=== PATIENT | male | born 1985 | race Caucasian/White ===

== ENCOUNTER 2017-01-22 02:43 | Inpatient (IN) | payer OTHER ==
--- NOTE | 2017-01-22 03:05 | HP ---
COWS - Scale Resting Pulse: 1= [place] 81-100 Sweatin= Chills/Flushing Restless Observation: 3= Extraneous Movement Pupil Size: 1= Pupils >than Normal Bone or Joint Aches: 1= Mild Discomfort Runny Nose/ Eye Tearin= Runny Nose/Eyes GI Upset > 30mins: 1= Stomach Cramp Tremor Observation: 1= Tremor [place], Not Seen Yawning Observation: 1= 1-2x During Session Anxiety or Irritability: 1=Feels Anxious/Irritable Goose Flesh Skin: 0=Smooth Skin COWS Score: 13 Admission ROS S - HPI Chief Complaint: WITHDRAWAL SYMPTOMS Allergies/Adverse Reactions: Allergies Allergy/AdvReac Type Severity Reaction Status Date / Time No Known Allergies Allergy Verified 01/22/17 03:10 History of Present Illness: 32 Y.O. MAN WITH A 3 YEAR HISTORY OF HEROIN DEPENDENCE IS HERE SEEKING DETOX. HE REPORTS HIS LAST ADMISSION TO DETOX WAS LAST November,. HE REPORTS HIS LONGEST PERIOD OF HEROIN ABSTINENCE HAS BEEN 1 YEAR. Exam Limitations: No Limitations - Ebola screening Have you traveled outside of the country in the last 21 days: No - Review of Systems Constitutional: Loss of Appetite, Changes in sleep EENT: reports: Tearing, Nose Congestion Respiratory: reports: No Symptoms reported Cardiac: reports: No Symptoms Reported GI: reports: Constipated : reports: No Symptoms Reported Musculoskeletal: reports: No Symptoms Reported Integumentary: reports: No Symptoms Reported Neuro: reports: No Symptoms reported Endocrine: reports: No Symptoms Reported Hematology: reports: No Symptoms Reported Psychiatric: reports: No Sypmtoms Reported Other Systems: Reviewed and Negative Patient History - Patient Medical History Hx Anemia: No Hx Asthma: No Hx Chronic Obstructive Pulmonary Disease (COPD): No Hx Cancer: No Hx Cardiac Disorders: No Hx Congestive Heart Failure: No Hx Hypertension: No Hx Hypercholesterolemia: No Hx Pacemaker: No HX Cerebrovascular Accident: No Hx Seizures: No Hx Dementia: No Hx Diabetes: No Hx Gastrointestinal Disorders: No Hx Liver Disease: No Hx Genitourinary Disorders: No Hx Sexually Transmitted Disorders: No Hx Renal Disease (ESRD): No Hx Thyroid Disease: No Hx Human Immunodeficiency Virus (HIV): No Hx Hepatitis C: No Hx Depression: No Hx Suicide Attempt: No Hx Bipolar Disorder: No Hx Schizophrenia: No - Patient Surgical History Past Surgical History: Yes Other Surgical History: 2012: LEFT HIP RESURFACING - PPD History Previous Implant?: Yes Documented Results: Negative w/o proof PPD to be Administered?: Yes - Reproductive History Patient is a Female of Child Bearing Age (11 -55 yrs old): No - Smoking Cessation Smoking history: Current every day smoker Have you smoked in the past 12 months: Yes Initiated information on smoking cessation: Yes 'Breaking Loose' booklet given: 01/22/17 - Substance & Tx. History Hx Alcohol Use: No Hx Substance Use: Yes Substance Use Type: Heroin Hx Substance Use Treatment: Yes (DETOX: 2016) - Substances Abused Heroin Route: Inhalation Frequency: Daily Amount used: 3 BUNDLES Age of first use: 28 Date of Last Use: 01/21/17 Family Disease History - Family Disease History Family History: Denies Admission Physical Exam [facility] - Vital Signs Vital Signs: Last Vital Signs Temp Pulse Resp BP Pulse Ox 98.5 F 93 H 16 160/90 01/22/17 03:41 01/22/17 03:41 01/22/17 03:41 01/22/17 03:41 - Physical General Appearance: Yes: No Apparent Distress, Nourished, Appropriately Dressed HEENTM: Yes: Hearing grossly Normal, Normocephalic, Normal Voice Respiratory: Yes: Chest Non-Tender, Lungs Clear, Normal Breath Sounds, No Respiratory Distress, No Accessory Muscle Use Neck: Yes: No masses,lesions,Nodules, Trachea in good position Breast: Yes: Breast Exam Deferred Cardiology: Yes: Regular Rhythm, Regular Rate Abdominal: Yes: Non Tender, Flat, Soft Genitourinary: Yes: Other (NO COMPLAINTS REPORTED) Back: Yes: Normal Inspection Musculoskeletal: Yes: full range of Motion, Gait Steady, Pelvis Stable Extremities: Yes: Normal Capillary Refill, Normal Inspection, Normal Range of Motion, Non-Tender Neurological: Yes: Fully Oriented, Alert, Motor Strength 5/5, Normal Mood/Affect , Normal Response Integumentary: Yes: Normal Color, Dry, Warm Lymphatic: Yes: Within Normal Limits - Diagnostic (1) Opioid dependence with withdrawal Current Visit: Yes Status: Chronic (2) Nicotine dependence Current Visit: Yes Status: Chronic Cleared for Admission [facility] - Detox or Rehab [facility] Level of Care: Medically Managed Detox Regimen/Protocol: Methadone Vital Signs - Vital Signs Vital Signs Refused: No Temperature: 98.5 F Temperature Source: Oral Pulse Rate: 93 Respiratory Rate: 16 Blood Pressure: 160/90 BP Location: Right Arm Blood Pressure Position: Sitting - Height Height: 6 ft 4 in - Weight Weight: 280 lb Weight Measurement Method: Standing Scale Body Mass Index (BMI): 34.0 - Bowel Function Bowel Movement: No Urine Drug Screen - Control Is Test Valid: Yes - Results Drug Screen Negative: No Urine Drug Screen Results: OPI-Opiates
[2017-01-22] MEDS ORDERED: MENTHOL/PHENOL 1 EACH UD MM PRN (03:19)
[2017-01-22] MEDS ORDERED: METHADONE HCL 10 MG TABLET (FOR DETOX USE ONLY) PO ONE ×3 (03:19→23:00)
[2017-01-22] MEDS ORDERED: MAGNESIUM HYDROX 2400MG/30ML ORAL SUSPENSION 30 ML CUP PO PRN (03:19)
[2017-01-22] MEDS ORDERED: hydrOXYzine PAMOATE 50 MG CAPSULE (FP) PO PRN (03:19)
[2017-01-22] MEDS ORDERED: MAG HYDROX/AL HYDROX/SIMETH 30 ML UNIT-DOSE CUP PO PRN (03:19)
[2017-01-22] MEDS ORDERED: MAGNESIUM CITRATE 300 ML BOTTLE PO PRN (03:19)
[2017-01-22] MEDS ORDERED: ACETAMINOPHEN 325 MG TABLET (FP) PO PRN (03:19)
[2017-01-22] MEDS ORDERED: IBUPROFEN 400 MG TABLET (FP) PO PRN (03:19)
[2017-01-22] MEDS ORDERED: guaiFENesin/D-METHORPHAN HB 10 ML UNIT-DOSE CUPS PO PRN (03:19)
[2017-01-22] MEDS ORDERED: P-EPHED 60MG/TRIPROLIDI 2.5MG TABLET PO PRN (03:19)
[2017-01-22] MEDS ORDERED: LOPERAMIDE HCL 2 MG CAPSULE PO PRN (03:19)
[2017-01-22 03:41] VITALS: BMI 34.0
[2017-01-22] MEDS ORDERED: diphenhydrAMINE HCL 25 MG CAPSULE (FP) PO ONE (03:51)
[2017-01-22] MEDS: diphenhydrAMINE HCL 50 MG CAPSULE PO PRN ×2 (03:55→22:22)
[2017-01-22] MEDS: diazePAM 5 MG TABLET PO PRN ×4 (03:58→22:21)
--- NOTE | 2017-01-22 09:59 | EKG ---
Test Reason : Blood Pressure : / mmHG Vent. Rate : 068 BPM Atrial Rate : 068 BPM P-R Int : 170 ms QRS Dur : 102 ms QT Int : 390 ms P-R-T Axes : 058 049 025 degrees QTc Int : 414 ms NORMAL SINUS RHYTHM NON-SPECIFIC INTRA-VENTRICULAR CONDUCTION DELAY NO PREVIOUS ECGS AVAILABLE Confirmed by TEO AWAN MD ([id number]) on 01/22/2017 9:58:27 AM Referred By: Confirmed By:TEO AWAN MD
[2017-01-22] MEDS: PRENATAL VITAMINS W/ FOLIC ACID TABLET (FP) PO SCH (10:33)
--- NOTE | 2017-01-22 15:58 | PN ---
S Progress Note Note: Patient seen resting in bed in [facility]. He reports feeling sweaty and aching of the joints. Last Vital Signs Temp Pulse Resp BP Pulse Ox 96.4 F L 81 20 136/57 01/22/17 09:54 01/22/17 09:54 01/22/17 09:54 01/22/17 09:54 VSS; continue detox, encouraged to drink lots of water. Follow up on admission labs (ordered for tomorrow).
[2017-01-22] MEDS: THIAMINE HCL 100 MG TABLET (FP) PO SCH (22:21)
[2017-01-23] MEDS: diazePAM 5 MG TABLET PO PRN ×4 (05:41→22:25)
[2017-01-23] MEDS ORDERED: METHADONE HCL 10 MG TABLET (FOR DETOX USE ONLY) PO ONE (10:00)
[2017-01-23 10:09] LABS: MCH 29.3 pg (25.7-33.7); MCHC 33.3 g/dl (32.0-35.9); MEAN CELL VOLUME 88.1 fl (80-96); MEAN PLT VOLUME 10.8 fl (7.5-11.1); PLATELET COUNT 131 K/MM3 (134-434); RDW 12.9 % (11.9-15.9); WHITE BLOOD COUNT 7.5 K/mm3 (4.0-10.0)
[2017-01-23 10:22] LABS: ALBUMIN 3.6 g/dl (3.4-5.0); ANION GAP 4 (8-16); CALCIUM 8.9 mg/dL (8.5-10.1); CO2 30 mmol/L (21-32); CREATININE 0.9 mg/dL (0.7-1.3); GLUCOSE,RANDOM 83 mg/dL (74-106); SGOT/AST 10 U/L (15-37); SGPT/ALT 21 U/L (12-78)
[2017-01-23] MEDS: PRENATAL VITAMINS W/ FOLIC ACID TABLET (FP) PO SCH (10:22)
[2017-01-23 10:24] LABS: ALK PHOS 62 U/L (45-117); BILIRUBIN,TOTAL 0.7 mg/dL (0.2-1.0); TOT PROT 6.6 g/dl (6.4-8.2)
--- NOTE | 2017-01-23 11:18 | PN ---
S COWS - Scale Resting Pulse: 1= [place] 81-100 Sweatin= Chills/Flushing Restless Observation: 1= Difficult to Sit Still Pupil Size: 1= Pupils >than Normal Bone or Joint Aches: 2= Severe Diffuse Aches Runny Nose/ Eye Tearin= Runny Nose/Eyes GI Upset > 30mins: 2= Nausea/Diarrhea Tremor Observation of Outstretched Hands: 2= Slight Tremor Visible Yawning Observation: 1= 1-2x During Session Anxiety or Irritability: 2=Irritable/Anxious Goose Flesh Skin: 3=Piloerection COWS Score: 18 S Progress Note (SOAP) Subjective: nausea, sweats, interrupted sleep, anxiety, tremors Objective: 01/23/17 11:17 Vital Signs - 24 hr 01/22/17 01/22/17 01/23/17 17:28 22:01 00:30 Temperature 97.9 F 96.5 F L Pulse Rate 50 L 79 Respiratory 16 20 20 Rate Blood Pressure 117/52 123/57 01/23/17 01/23/17 01/23/17 03:30 06:22 09:02 Temperature 97.0 F L 97.5 F L Pulse Rate 53 L 90 Respiratory 20 18 20 Rate Blood Pressure 151/80 113/75 Laboratory Tests 01/23/17 01/23/17 07:30 07:30 WBC 7.5 RBC 4.81 Hgb 14.1 Hct 42.4 MCV 88.1 MCH 29.3 MCHC 33.3 RDW 12.9 Plt Count 131 L MPV 10.8 Sodium 140 Potassium 4.3 Chloride 106 Carbon Dioxide 30 Anion Gap 4 L BUN 14 Creatinine 0.9 Creat Clearance w eGFR > 60 Random Glucose 83 Calcium 8.9 Total Bilirubin 0.7 AST 10 L ALT 21 Alkaline Phosphatase 62 Total Protein 6.6 Albumin 3.6 u/a pending Assessment: 01/23/17 11:17 withdrawal sx Plan: cont detox, fluids, encourage ambualtion, symptomatic relief of withdrawal medications ordered ATC and prn
[2017-01-23] MEDS: NAPROXEN 500 MG TABLET (FP) PO SCH ×2 (12:42→22:24)
[2017-01-23] MEDS: cloNIDine HCL 0.1 MG TABLET PO SCH ×2 (12:42→22:27)
[2017-01-23] MEDS: GABAPENTIN 100 MG CAPSULE (FP) PO SCH ×2 (13:13→22:24)
[2017-01-23] MEDS: CYCLOBENZAPRINE HCL 5 MG TABLET PO SCH ×2 (13:14→22:23)
[2017-01-23 22:08] LABS: URINE APPEARANCE SLCLOUDY; URINE BILIRUBIN NEGATIVE (NEGATIVE); URINE BLOOD NEGATIVE (NEGATIVE); URINE COLOR YELLOW; URINE GLUCOSE (UA) NEGATIVE (NEGATIVE); URINE KETONE NEGATIVE (NEGATIVE); URINE LEUK ESTERASE 2+ (NEGATIVE); URINE NITRITE NEGATIVE (NEGATIVE); URINE PROTEIN NEGATIVE (NEGATIVE); URINE UROBILINOGEN NEGATIVE mg/dL (0.2-1.0)
[2017-01-23 22:13] LABS: URINE BACTERIA RARE /hpf (NONE SEEN); URINE MUCUS RARE; URINE RBC 2 /hpf (0-3); URINE WBC 21 /hpf (3-5)
[2017-01-23] MEDS: THIAMINE HCL 100 MG TABLET (FP) PO SCH (22:23)
[2017-01-23] MEDS: diphenhydrAMINE HCL 50 MG CAPSULE PO PRN (22:24)
[2017-01-24] MEDS: diphenhydrAMINE HCL 50 MG CAPSULE PO PRN (00:18)
[2017-01-24] MEDS: diazePAM 5 MG TABLET PO PRN ×2 (02:42→10:31)
[2017-01-24] MEDS: GABAPENTIN 100 MG CAPSULE (FP) PO SCH (05:34)
[2017-01-24] MEDS: CYCLOBENZAPRINE HCL 5 MG TABLET PO SCH (05:34)
[2017-01-24 09:24] VITALS: BP 124/67; PULSE 86; TEMP 96
[2017-01-24] MEDS ORDERED: PANTOPRAZOLE 40 MG TABLET (FP) PO SCH (10:00)
[2017-01-24] MEDS ORDERED: METHADONE HCL 5 MG TABLET (FOR DETOX USE ONLY) PO ONE (10:00)
[2017-01-24] MEDS: NAPROXEN 500 MG TABLET (FP) PO SCH (10:29)
[2017-01-24] MEDS: cloNIDine HCL 0.1 MG TABLET PO SCH (10:29)
[2017-01-24] MEDS: PRENATAL VITAMINS W/ FOLIC ACID TABLET (FP) PO SCH (10:29)
--- NOTE | 2017-01-24 11:21 | PN ---
[facility] COWS - Scale Resting Pulse: 1= [place] 81-100 Sweatin= Chills/Flushing Restless Observation: 1= Difficult to Sit Still Pupil Size: 0= Normal to Room Light Bone or Joint Aches: 1= Mild Discomfort Runny Nose/ Eye Tearin= Runny Nose/Eyes GI Upset > 30mins: 0= None Tremor Observation of Outstretched Hands: 0= None Yawning Observation: 0= None Anxiety or Irritability: 2=Irritable/Anxious Goose Flesh Skin: 3=Piloerection COWS Score: 11 [facility] Progress Note (SOAP) Subjective: Anxious, Interrupted sleep, Sweating. Objective: PT. A & O X 3. NO ACUTE DISTRESS. 01/24/17 11:19 Vital Signs Temperature 96.0 F L 01/24/17 09:23 Pulse Rate 86 01/24/17 09:23 Respiratory Rate 18 01/24/17 09:23 Blood Pressure 124/67 01/24/17 09:23 O2 Sat by Pulse Oximetry (%) Laboratory Tests 01/23/17 01/23/17 01/23/17 07:30 07:30 07:30 WBC 7.5 RBC 4.81 Hgb 14.1 Hct 42.4 MCV 88.1 MCH 29.3 MCHC 33.3 RDW 12.9 Plt Count 131 L MPV 10.8 Sodium 140 Potassium 4.3 Chloride 106 Carbon Dioxide 30 Anion Gap 4 L BUN 14 Creatinine 0.9 Creat Clearance w eGFR > 60 Random Glucose 83 Calcium 8.9 Total Bilirubin 0.7 AST 10 L ALT 21 Alkaline Phosphatase 62 Total Protein 6.6 Albumin 3.6 Urine Color Urine Appearance Urine pH Ur Specific [place] Urine Protein Urine Glucose (UA) Urine Ketones Urine Blood Urine Nitrite Urine Bilirubin Urine Urobilinogen Urine RBC Urine WBC Urine Bacteria Urine Mucus RPR Titer Nonreactive 01/23/17 19:00 WBC RBC Hgb Hct MCV MCH MCHC RDW Plt Count MPV Sodium Potassium Chloride Carbon Dioxide Anion Gap BUN Creatinine Creat Clearance w eGFR Random Glucose Calcium Total Bilirubin AST ALT Alkaline Phosphatase Total Protein Albumin Urine Color Yellow Urine Appearance Slcloudy Urine pH 5.0 Ur Specific [place] 1.025 Urine Protein Negative Urine Glucose (UA) Negative Urine Ketones Negative Urine Blood Negative Urine Nitrite Negative Urine Bilirubin Negative Urine Urobilinogen Negative Urine RBC 2 Urine WBC 21 Urine Bacteria Rare Urine Mucus Rare RPR Titer LABS NOTED. Assessment: 01/24/17 11:19 WITHDRAWAL SYMPTOMS. Plan: CONTINUE DETOX.
--- NOTE | 2017-01-24 12:03 | DS ---
[facility] Detox Discharge Summary Admission Date: 01/22/17 Discharge Date: 01/24/17 - History Present History: Opioid Dependence Additional Comments: PATIENT HAS PERSONAL ISSUE TOO DEAL WITH AND DOES NOT WISH TO STAY TO COMPLETE DETOX REGIMEN. PATIENT ADVISED TO GO IMMEDIATELY TO NEAREST ER SHOULD ANY INTOLERABLE DETOX SYMPTOMS DEVELOP AT ANY TIME. PATIENT LEFT DETOX UNIT IN STABLE MEDICAL CONDITION. Pertinent Past History: Nicotine Dependence. - Physical Exam Results Vital Signs: Vital Signs Temperature 96.0 F L 01/24/17 09:23 Pulse Rate 86 01/24/17 09:23 Respiratory Rate 18 01/24/17 09:23 Blood Pressure 124/67 01/24/17 09:23 O2 Sat by Pulse Oximetry (%) Pertinent Admission Physical Exam Findings: WITHDRAWAL SYMPTOMS. Laboratory Tests 01/23/17 01/23/17 01/23/17 07:30 07:30 07:30 WBC 7.5 RBC 4.81 Hgb 14.1 Hct 42.4 MCV 88.1 MCH 29.3 MCHC 33.3 RDW 12.9 Plt Count 131 L MPV 10.8 Sodium 140 Potassium 4.3 Chloride 106 Carbon Dioxide 30 Anion Gap 4 L BUN 14 Creatinine 0.9 Creat Clearance w eGFR > 60 Random Glucose 83 Calcium 8.9 Total Bilirubin 0.7 AST 10 L ALT 21 Alkaline Phosphatase 62 Total Protein 6.6 Albumin 3.6 Urine Color Urine Appearance Urine pH Ur Specific [place] Urine Protein Urine Glucose (UA) Urine Ketones Urine Blood Urine Nitrite Urine Bilirubin Urine Urobilinogen Urine RBC Urine WBC Urine Bacteria Urine Mucus RPR Titer Nonreactive 01/23/17 19:00 WBC RBC Hgb Hct MCV MCH MCHC RDW Plt Count MPV Sodium Potassium Chloride Carbon Dioxide Anion Gap BUN Creatinine Creat Clearance w eGFR Random Glucose Calcium Total Bilirubin AST ALT Alkaline Phosphatase Total Protein Albumin Urine Color Yellow Urine Appearance Slcloudy Urine pH 5.0 Ur Specific [place] 1.025 Urine Protein Negative Urine Glucose (UA) Negative Urine Ketones Negative Urine Blood Negative Urine Nitrite Negative Urine Bilirubin Negative Urine Urobilinogen Negative Urine RBC 2 Urine WBC 21 Urine Bacteria Rare Urine Mucus Rare RPR Titer LABS NOTED. - Treatment Hospital Course: Detoxed Safely - Medication Discharge Medications: Ambulatory Orders NK [No Known Home Medication] 01/23/17 - Diagnosis (1) Nicotine dependence Current Visit: Yes Status: Chronic Qualifiers: Nicotine product type: cigarettes Substance use status: uncomplicated Qualified Code(s): F17.210 - Nicotine dependence, cigarettes, uncomplicated; F17.210 - Nicotine dependence, cigarettes, uncomplicated (2) Opioid dependence with withdrawal Current Visit: Yes Status: Acute - AMA Did Patient Leave Against Medical Advice: Yes (PT HAD PERSONAL ISSUE AND DID NOT WISH TO STAY TO COMPLETE DETOX REGIMEN.)
[2017-01-25] MEDS ORDERED: METHADONE HCL 5 MG TABLET (FOR DETOX USE ONLY) PO ONE (10:00)
[2017-01-26] MEDS ORDERED: METHADONE HCL 10 MG TABLET (FOR DETOX USE ONLY) PO ONE (10:00)
[2017-01-27] MEDS ORDERED: METHADONE HCL 5 MG TABLET (FOR DETOX USE ONLY) PO ONE (06:00)
== END 2017-01-24 11:38 | disposition left against medical advice (07) | DRG 770 ==
LOC: YASAS 02:43 → Y3N 02:50
PROVIDERS: ADMIT Internal Medicine; ATTEND Internal Medicine
PROC: HZ2ZZZZ Detoxification Services for Substance Abuse Treatment (ICD-10-PCS; principal; 2017-01-22)
DX: F11.23 Opioid dependence with withdrawal (principal); F17.210 Nicotine dependence, cigarettes, uncomplicated
CPT/HCPCS: 36415; 80053; 81003; 81015; 85027; 86593; 93005; 93010

== ENCOUNTER 2017-06-13 20:19 | Inpatient (IN) | payer OTHER ==
[2017-06-13 20:29] VITALS: BMI 33.5
--- NOTE | 2017-06-13 22:37 | HP ---
COWS - Scale Resting Pulse: 1= [place] 81-100 Sweatin=Flushed/Facial Moisture Restless Observation: 0= Sits Still Pupil Size: 1= Pupils >than Normal Bone or Joint Aches: 4=Acute Joint/Muscle Pain Runny Nose/ Eye Tearin= Runny Nose/Eyes GI Upset > 30mins: 1= Stomach Cramp Tremor Observation: 2= Slight Tremor Visible Yawning Observation: 1= 1-2x During Session Anxiety or Irritability: 4=Extreme Anxiety Goose Flesh Skin: 0=Smooth Skin COWS Score: 18 Admission ROS S - [facility] Chief Complaint: Opioid withdrawal symptoms Allergies/Adverse Reactions: Allergies Allergy/AdvReac Type Severity Reaction Status Date / Time No Known Allergies Allergy Verified 06/13/17 23:15 History of Present Illness: 32 years old male with a seven years history of opioid dependence is seeking admission to detox. Patient has been in previous detox and reports 16 months of sobriety. He has past medical history of DVT (left lower leg), MRSA, HTN, Endocarditis, Depression and anxiety. Patient reports that he has a heart valve. Exam Limitations: No Limitations - Ebola screening Have you traveled outside of the country in the last 21 days: No Have you had contact with anyone from an Ebola affected area: No Have you been sick,other than usual withdrawal symptoms: No Do you have a fever: No - Review of Systems Constitutional: Chills, Loss of Appetite, Malaise, Night Sweats, Changes in sleep EENT: reports: No Symptoms Reported Respiratory: reports: No Symptoms reported Cardiac: reports: No Symptoms Reported GI: reports: Nausea, Poor Appetite, Poor Fluid Intake, Abdominal cramping : reports: No Symptoms Reported Musculoskeletal: reports: Back Pain, Muscle Pain, Muscle Weakness Integumentary: reports: Flushing Endocrine: reports: No Symptoms Reported Hematology: reports: No Symptoms Reported Psychiatric: reports: Orientated x3, Anxious Other Systems: Reviewed and Negative Patient History - Patient Medical History Hx Anemia: No Hx Asthma: No Hx Chronic Obstructive Pulmonary Disease (COPD): No Hx Cancer: No Hx Cardiac Disorders: Yes (Endocarditis) Hx Congestive Heart Failure: No Hx Hypertension: Yes Hx Hypercholesterolemia: No Hx Pacemaker: No HX Cerebrovascular Accident: No Hx Seizures: No Hx Dementia: No Hx Diabetes: No Hx Gastrointestinal Disorders: No Hx Liver Disease: No Hx Genitourinary Disorders: No Hx Sexually Transmitted Disorders: No Hx Renal Disease (ESRD): No Hx Thyroid Disease: No Hx Human Immunodeficiency Virus (HIV): No (Negative 2016) Hx Hepatitis C: No (negative 2016) Hx Depression: Yes Hx Suicide Attempt: No (Denies suicidal ideation at this time) Hx Bipolar Disorder: No Hx Schizophrenia: No Other Medical History: DVT (LEFT LOWER LEG) - Patient Surgical History Past Surgical History: Yes Hx Neurologic Surgery: No Hx Cataract Extraction: No Hx Cardiac Surgery: No Hx Lung Surgery: No Hx Abdominal Surgery: No Hx Appendectomy: No Hx Cholecystectomy: No Hx Genitourinary Surgery: No Hx Orthopedic Surgery: No Other Surgical History: 2012: LEFT HIP RESURFACING Anesthesia Reaction: No - PPD History Previous Implant?: Yes (POSITIVE PPD) Implanted On Prior [facility] Admission?: No Date: 01/24/17 PPD to be Administered?: No - Reproductive History Patient is a Female of Child Bearing Age (11 -55 yrs old): No (MALE) - Smoking Cessation Smoking history: Current every day smoker Have you smoked in the past 12 months: Yes Aproximately how many cigarettes per day: 30 Hx Chewing Tobacco Use: No Initiated information on smoking cessation: Yes 'Breaking Loose' booklet given: 06/13/17 - Substance & Tx. History Hx Alcohol Use: No Hx Substance Use: Yes Substance Use Type: Cocaine, Heroin Hx Substance Use Treatment: Yes ([facility]) - Substances Abused Heroin Route: Injection Frequency: Daily Amount used: 4 GRAMS Age of first use: 29 Date of Last Use: 06/13/17 Cocaine Route: Inhalation Frequency: 1-2 times per week Amount used: 1 GRAM Age of first use: 16 Date of Last Use: 06/13/17 Alprazolam (Xanax) Route: Oral Frequency: Daily Amount used: 2 MG Age of first use: 28 Date of Last Use: 06/13/17 Family Disease History - Family Disease History Family History: Denies Admission Physical Exam [facility] - Vital Signs Vital Signs: Vital Signs - 24 hr 06/13/17 20:28 Temperature 96.4 F L Pulse Rate 88 Respiratory 18 Rate Blood Pressure 146/76 - Physical General Appearance: Yes: Cachetic, Tremorous, Irritable, Sweating, Anxious HEENTM: Yes: Normal Voice, DEE Respiratory: Yes: Lungs Clear, Normal Breath Sounds, No Respiratory Distress Neck: Yes: Supple Breast: Yes: Breast Exam Deferred Cardiology: Yes: Regular Rhythm, Regular Rate, S1, S2 Abdominal: Yes: Normal Bowel Sounds, Soft Genitourinary: Yes: Within Normal Limits Back: Yes: Normal Inspection Musculoskeletal: Yes: Back pain, Muscle Pain, Muscle weakness Extremities: Yes: Tremors Neurological: Yes: Alert, Normal Mood/Affect Integumentary: Yes: Warm, Track Amaro (both arms) Lymphatic: Yes: Within Normal Limits - Diagnostic (1) Endocarditis Current Visit: Yes Status: Chronic (2) DVT (deep venous thrombosis) Current Visit: Yes Status: Chronic Qualifiers: DVT location: lower extremity Laterality: left (3) HTN (hypertension) Current Visit: Yes Status: Chronic (4) Opioid dependence with withdrawal Current Visit: Yes Status: Chronic (5) Nicotine dependence Current Visit: Yes Status: Chronic Qualifiers: Nicotine product type: cigarettes Substance use status: uncomplicated Qualified Code(s): F17.210 - Nicotine dependence, cigarettes, uncomplicated (6) Depression Current Visit: Yes Status: Chronic Qualifiers: Depression Type: unspecified Qualified Code(s): F32.9 - Major depressive disorder, single episode, unspecified (7) Anxiety Current Visit: Yes Status: Chronic Cleared for Admission S - Detox or Rehab [facility] Level of Care: Medically Managed Detox Regimen/Protocol: Methadone/Valium S Breath Alcohol Content Breath Alcohol Content: 0 Urine Drug Screen - Results Drug Screen Negative: Yes Urine Drug Screen Results: KVAITA-Cocaine, OPI-Opiates, BZO-Benzodiazepines, OXY- Oxycodone
[2017-06-13] MEDS ORDERED: NICOTINE POLACRILEX 2 MG GUM BUC PRN (22:52)
[2017-06-13] MEDS ORDERED: P-EPHED 60MG/TRIPROLIDI 2.5MG TABLET PO PRN (22:52)
[2017-06-13] MEDS ORDERED: MENTHOL/PHENOL 1 EACH UD MM PRN (22:52)
[2017-06-13] MEDS ORDERED: METHADONE HCL 10 MG TABLET (FOR DETOX USE ONLY) PO ONE ×2 (22:52→23:00)
[2017-06-13] MEDS ORDERED: IBUPROFEN 400 MG TABLET (FP) PO PRN (22:52)
[2017-06-13] MEDS ORDERED: LOPERAMIDE HCL 2 MG CAPSULE PO PRN (22:52)
[2017-06-13] MEDS ORDERED: MAGNESIUM CITRATE 300 ML BOTTLE PO PRN (22:52)
[2017-06-13] MEDS ORDERED: diazePAM 5 MG TABLET PO ONE (22:52)
[2017-06-13] MEDS ORDERED: MAGNESIUM HYDROX 2400MG/30ML ORAL SUSPENSION 30 ML CUP PO PRN (22:52)
[2017-06-13] MEDS ORDERED: MAG HYDROX/AL HYDROX/SIMETH 30 ML UNIT-DOSE CUP PO PRN (22:52)
[2017-06-13] MEDS ORDERED: ACETAMINOPHEN 325 MG TABLET (FP) PO PRN (22:52)
[2017-06-13] MEDS ORDERED: guaiFENesin/D-METHORPHAN HB 10 ML UNIT-DOSE CUPS PO PRN (22:52)
[2017-06-14] MEDS: diazePAM 5 MG TABLET PO SCH ×5 (00:03→22:33)
[2017-06-14] MEDS ORDERED: METHADONE HCL 10 MG TABLET (FOR DETOX USE ONLY) PO SCH (10:00)
[2017-06-14 10:27] LABS: HEMATOCRIT 39.4 % (35.4-49); HEMOGLOBIN 12.9 GM/dL (11.7-16.9); MCH 27.9 pg (25.7-33.7); MCHC 32.7 g/dl (32.0-35.9); MEAN CELL VOLUME 85.1 fl (80-96); MEAN PLT VOLUME 10.1 fl (7.5-11.1); PLATELET COUNT 159 K/MM3 (134-434); RBC 4.63 M/mm3 (4.00-5.60); RDW 13.9 % (11.9-15.9); WHITE BLOOD COUNT 7.6 K/mm3 (4.0-10.0)
[2017-06-14] MEDS: NICOTINE 14 MG/24 HOURS TOPICAL PATCH TD SCH (10:28)
[2017-06-14] MEDS: diazePAM 5 MG TABLET PO PRN ×2 (10:28→17:16)
[2017-06-14] MEDS: PRENATAL VITAMINS W/ FOLIC ACID TABLET (FP) PO SCH (10:28)
[2017-06-14 11:12] LABS: CHLORIDE 104 mmol/L (98-107); POTASSIUM 3.9 mmol/L (3.5-5.1); SODIUM 142 mmol/L (136-145)
[2017-06-14 11:27] LABS: ALBUMIN 3.1 g/dl (3.4-5.0); ALK PHOS 76 U/L (45-117); ANION GAP 10 (8-16); BILIRUBIN,TOTAL 0.5 mg/dL (0.2-1.0); BLOOD UREA NITROGEN 17 mg/dL (7-18); CALCIUM 8.8 mg/dL (8.5-10.1); CO2 28 mmol/L (21-32); CREATININE 0.8 mg/dL (0.7-1.3); GLUCOSE,RANDOM 106 mg/dL (74-106); SGOT/AST 11 U/L (15-37); SGPT/ALT 14 U/L (12-78); TOT PROT 6.4 g/dl (6.4-8.2)
--- NOTE | 2017-06-14 12:01 | PN ---
[facility] COWS - Scale Resting Pulse: 0= [place] 80 or Below Sweatin=Flushed/Facial Moisture Restless Observation: 1= Difficult to Sit Still Pupil Size: 0= Normal to Room Light Bone or Joint Aches: 2= Severe Diffuse Aches Runny Nose/ Eye Tearin= None GI Upset > 30mins: 1= Stomach Cramp Tremor Observation of Outstretched Hands: 0= None Yawning Observation: 2= >3x During Session Anxiety or Irritability: 2=Irritable/Anxious Goose Flesh Skin: 3=Piloerection COWS Score: 13 [facility] Progress Note (SOAP) Subjective: Fatigue, Body Aches, Sweating, Anxious. Objective: PT. A & O X 3, OBSERVED AMBULATING ON UNIT. NO ACUTE DISTRESS. 06/14/17 11:59 Vital Signs Temperature 97.1 F L 06/14/17 09:25 Pulse Rate 72 06/14/17 09:25 Respiratory Rate 18 06/14/17 09:25 Blood Pressure 128/69 06/14/17 09:25 O2 Sat by Pulse Oximetry (%) Laboratory Tests 06/14/17 06/14/17 08:00 08:00 WBC 7.6 RBC 4.63 Hgb 12.9 Hct 39.4 MCV 85.1 MCH 27.9 MCHC 32.7 RDW 13.9 Plt Count 159 D MPV 10.1 Sodium 142 Potassium 3.9 Chloride 104 Carbon Dioxide 28 Anion Gap 10 BUN 17 D Creatinine 0.8 Creat Clearance w eGFR > 60 Random Glucose 106 D Calcium 8.8 Total Bilirubin 0.5 D AST 11 L ALT 14 D Alkaline Phosphatase 76 D Total Protein 6.4 Albumin 3.1 L LABS NOTED. RPR, UA RESULTS PENDING. 06/14/17 12:00 Assessment: 06/14/17 11:59 WITHDRAWAL SYMPTOMS. Plan: CONTINUE DETOX. INCREASE DAILY PO FLUID INTAKE.
--- NOTE | 2017-06-14 17:13 | EKG ---
Test Reason : Blood Pressure : / mmHG Vent. Rate : 072 BPM Atrial Rate : 072 BPM P-R Int : 164 ms QRS Dur : 096 ms QT Int : 400 ms P-R-T Axes : 009 050 016 degrees QTc Int : 438 ms NORMAL SINUS RHYTHM NORMAL ECG WHEN COMPARED WITH ECG OF 22-JAN-2017 03:25, NO SIGNIFICANT CHANGE WAS FOUND Confirmed by BIANKA CHAPARRO MD ([id number]) on 06/14/2017 5:12:45 PM Referred By: Confirmed By:BIANKA CHAPARRO MD
--- NOTE | 2017-06-14 18:36 | CONSULT ---
[facility] Psychiatric Consult - Data Date of interview: 06/14/17 Admission source: [facility] Identifying data: Readmission to [facility] for this 32 y/o male from [place] descent seeking detox treatment on for heroin,cocaine,xanax and nicotine dependence.Patient is single without children,domiciled,unemployed and supported by relatives. Substance Abuse History: Confirmed by patient in this interview.Smoking history : Current every day smoker. Have you smoked in the past 12 months: Yes. Aproximately how many cigarettes per day: 30. Hx Chewing Tobacco Use: No. Initiated information on smoking cessation: Yes. 'Breaking Loose' booklet given : 06/13/17. - Substance & Tx. History. Hx Alcohol Use: No. Hx Substance Use: Yes. Substance Use Type: Cocaine, Heroin. Hx Substance Use Treatment: Yes ( [facility]). - Substances Abused. Heroin. Route: Injection. Frequency: Daily. Amount used: 4 GRAMS. Age of first use: 29. Date of Last Use: 06/13/17. Cocaine. Route: Inhalation. Frequency: 1-2 times per week. Amount used: 1 GRAM. Age of first use: 16. Date of Last Use: 06/13/17. Alprazolam (Xanax) . Route: Oral. Frequency: Daily. Amount used: 2 MG. Age of first use: 28. Date of Last Use: 06/13/17 Medical History: History of two hip replacements (2011),endocarditis,MERSA infection and DVT (left leg). Psychiatric History: Patient denies. Physical/Sexual Abuse/Trauma History: Patient denies. Additional Comment: Urine Drug Screen Results: KAVITA-Cocaine, OPI-Opiates, BZO- Benzodiazepines, OXY-Oxycodone.Noted. Mental Status Exam - Mental Status Exam Alert and Oriented to: Time, Place, Person Cognitive Function: Good Patient Appearance: Well Groomed (tall stature,overweight frame) Mood: Nervous, Anxious, Hopeful Affect: Mood Congruent Patient Behavior: Fatigued, Appropriate, Cooperative (friendly) Speech Pattern: Clear, Appropriate Voice Loudness: Normal Thought Process: Intact, Goal Oriented Thought Disorder: Not Present Hallucinations: Denies Suicidal Ideation: Denies Homicidal Ideation: Denies Insight/Judgement: Poor Sleep: Poorly, Difficulty falling asleep Appetite: Good Muscle strength/Tone: Normal Gait/Station: Normal Psychiatric Findings - Problem List ([place] 1, 2,3) (1) Opioid dependence with withdrawal Current Visit: Yes Status: Acute (2) Nicotine dependence Current Visit: Yes Status: Acute Qualifiers: Nicotine product type: cigarettes Substance use status: uncomplicated Qualified Code(s): F17.210 - Nicotine dependence, cigarettes, uncomplicated (3) Cocaine dependence Current Visit: Yes Status: Acute (4) Benzodiazepine dependence Current Visit: Yes Status: Acute (5) Substance induced mood disorder Current Visit: Yes Status: Suspected (6) Insomnia Current Visit: Yes Status: Acute - Initial Treatment Plan Initial Treatment Plan: Psychoeducation.Sleep hygiene.Detoxification in progress.Ambien 10 mg po hs prn.Patient made aware of the potential for parasomnias.Mr Agrawal has expressed his agrement to this careplan.Observation.
[2017-06-14] MEDS ORDERED: THIAMINE HCL 100 MG TABLET (FP) PO SCH (22:00)
[2017-06-14] MEDS ORDERED: ZOLPIDEM TARTRATE 5 MG TABLET PO PRN (22:00)
[2017-06-15] MEDS: diazePAM 5 MG TABLET PO PRN (05:12)
[2017-06-15 09:16] VITALS: BP 127/74; PULSE 68; TEMP 98.5
[2017-06-15] MEDS ORDERED: diazePAM 5 MG TABLET PO SCH (10:00)
[2017-06-15] MEDS ORDERED: METHADONE HCL 5 MG TABLET (FOR DETOX USE ONLY) PO SCH (10:00)
[2017-06-15] MEDS: NICOTINE 14 MG/24 HOURS TOPICAL PATCH TD SCH (10:43)
[2017-06-15] MEDS: PRENATAL VITAMINS W/ FOLIC ACID TABLET (FP) PO SCH (10:44)
--- NOTE | 2017-06-15 11:19 | DS ---
[facility] Detox Discharge Summary Admission Date: 06/13/17 Discharge Date: 06/15/17 - History Present History: Cocaine Dependence, Opioid Dependence, Sedative Dependence Additional Comments: PT SIGNED OUT AMA STATING "I HAVE ONE MORE DAY TO DETOX, TOMORROW IS MY DISCHARGE DAY ANYWAY AND I JUST WANNA LEAVE TODAY". ALERT O X 3. NAD. Pertinent Past History: SEE DX BELOW - Physical Exam Results Vital Signs: Vital Signs Temperature 98.5 F 06/15/17 09:15 Pulse Rate 68 06/15/17 09:15 Respiratory Rate 18 06/15/17 09:15 Blood Pressure 127/74 06/15/17 09:15 O2 Sat by Pulse Oximetry (%) Pertinent Admission Physical Exam Findings: WITHDRAWAL SX - Treatment Hospital Course: Discharged Condition Good - Medication Discharge Medications: Ambulatory Orders NK [No Known Home Medication] 01/23/17 - Diagnosis (1) Benzodiazepine dependence Current Visit: Yes Status: Acute (2) Cocaine dependence Current Visit: Yes Status: Acute Qualifiers: Substance use status: uncomplicated Qualified Code(s): F14.20 - Cocaine dependence, uncomplicated (3) Nicotine dependence Current Visit: Yes Status: Acute Qualifiers: Nicotine product type: cigarettes Substance use status: uncomplicated Qualified Code(s): F17.210 - Nicotine dependence, cigarettes, uncomplicated (4) Opioid dependence with withdrawal Current Visit: Yes Status: Acute (5) HTN (hypertension) Current Visit: Yes Status: Chronic Qualifiers: Hypertension type: unspecified Qualified Code(s): I10 - Essential (primary ) hypertension - AMA Did Patient Leave Against Medical Advice: Yes (AMA)
[2017-06-17] MEDS ORDERED: METHADONE HCL 10 MG TABLET (FOR DETOX USE ONLY) PO SCH (10:00)
[2017-06-17] MEDS ORDERED: diazePAM 5 MG TABLET PO SCH (10:00)
[2017-06-18] MEDS ORDERED: METHADONE HCL 5 MG TABLET (FOR DETOX USE ONLY) PO SCH (06:00)
== END 2017-06-15 11:30 | disposition left against medical advice (07) | DRG 770 ==
LOC: YASAS 20:19 → Y3N 22:56
PROVIDERS: ADMIT Internal Medicine; ATTEND Internal Medicine
PROC: HZ2ZZZZ Detoxification Services for Substance Abuse Treatment (ICD-10-PCS; principal; 2017-06-13)
DX: F11.23 Opioid dependence with withdrawal (principal); F14.20 Cocaine dependence, uncomplicated; F13.20 Sedative, hypnotic or anxiolytic dependence, uncomplicated; F17.210 Nicotine dependence, cigarettes, uncomplicated; F32.9 Major depressive disorder, single episode, unspecified; F19.24 Other psychoactive substance dependence with psychoactive substance-induced mood disorder; F41.9 Anxiety disorder, unspecified; I10 Essential (primary) hypertension; Z86.718 Personal history of other venous thrombosis and embolism
CPT/HCPCS: 36415; 80053; 85027; 86593; 93005; 93010

== ENCOUNTER 2017-08-20 20:02 | Inpatient (IN) | payer OTHER ==
[~2017-08-20 20:02] MED LIST: METHADONE HCL 10 MG TABLET (FOR DETOX USE ONLY) PO ONE
[2017-08-20] MEDS ORDERED: MELATONIN 5 MG TABLETS PO PRN (22:00)
[2017-08-20 22:42] VITALS: BMI 34.0
[2017-08-20] MEDS ORDERED: METHADONE HCL 10 MG TABLET (FOR DETOX USE ONLY) PO ONE ×2 (23:00→23:16)
--- NOTE | 2017-08-20 23:00 | HP ---
COWS - Scale Resting Pulse: 0= [place] 80 or Below Sweatin=Flushed/Facial Moisture Restless Observation: 1= Difficult to Sit Still Pupil Size: 1= Pupils >than Normal Bone or Joint Aches: 4=Acute Joint/Muscle Pain Runny Nose/ Eye Tearin= Runny Nose/Eyes GI Upset > 30mins: 1= Stomach Cramp Tremor Observation: 2= Slight Tremor Visible Yawning Observation: 1= 1-2x During Session Anxiety or Irritability: 2=Irritable/Anxious Goose Flesh Skin: 0=Smooth Skin COWS Score: 16 Admission [facility] - [facility] Chief Complaint: Heroin withdrawal symptoms Allergies/Adverse Reactions: Allergies Allergy/AdvReac Type Severity Reaction Status Date / Time No Known Allergies Allergy Verified 08/20/17 22:43 History of Present Illness: 32 years old male with a seven years history of heroine dependence is seeking admission to detox. Patient was in detox 06/13 - 06/15/2017 and left against medical advice. He reports a year and four months of sobriety. He reports medical history of DVT (left lower leg), MRSA, HTN, Endocarditis, Depression and anxiety. He denies suicide attempt and suicidal ideation at this time. Exam Limitations: No Limitations - Ebola screening Have you traveled outside of the country in the last 21 days: No Have you had contact with anyone from an Ebola affected area: No Have you been sick,other than usual withdrawal symptoms: No Do you have a fever: No - Review of Systems Constitutional: Chills, Loss of Appetite, Malaise, Night Sweats, Changes in sleep EENT: reports: Nose Congestion Respiratory: reports: No Symptoms reported Cardiac: reports: No Symptoms Reported GI: reports: Nausea, Poor Appetite, Poor Fluid Intake, Abdominal cramping : reports: No Symptoms Reported Musculoskeletal: reports: Back Pain, Joint Pain, Muscle Pain, Neck Pain Integumentary: reports: Dryness, Flushing Neuro: reports: Tingling, Tremors Endocrine: reports: No Symptoms Reported Hematology: reports: No Symptoms Reported Psychiatric: reports: Mood/Affect Appropiate, Orientated x3, Anxious, Depressed Other Systems: Reviewed and Negative Patient History - Patient Medical History Hx Anemia: No Hx Asthma: No Hx Chronic Obstructive Pulmonary Disease (COPD): No Hx Cancer: No Hx Cardiac Disorders: Yes (Endocarditis- Not on medication) Hx Congestive Heart Failure: No Hx Hypertension: Yes (Not on medication) Hx Hypercholesterolemia: No Hx Pacemaker: No HX Cerebrovascular Accident: No Hx Seizures: No Hx Dementia: No Hx Diabetes: No Hx Gastrointestinal Disorders: No Hx Liver Disease: No Hx Genitourinary Disorders: No Hx Sexually Transmitted Disorders: No Hx Renal Disease (ESRD): No Hx Thyroid Disease: No Hx Human Immunodeficiency Virus (HIV): No (Negative 2016) Hx Hepatitis C: No (Negative 2016) Hx Depression: Yes (Not on medication) Hx Suicide Attempt: No (Denies suicide attempt or suicidal ideation at this time ) Hx Bipolar Disorder: No Hx Schizophrenia: No - Patient Surgical History Past Surgical History: Yes Hx Neurologic Surgery: No Hx Cataract Extraction: No Hx Cardiac Surgery: No Hx Lung Surgery: No Hx Abdominal Surgery: No Hx Appendectomy: No Hx Cholecystectomy: No Hx Genitourinary Surgery: No Hx Orthopedic Surgery: No Other Surgical History: 2012: LEFT HIP RESURFACING Anesthesia Reaction: No - PPD History Previous Implant?: Yes Documented Results: Negative w/proof Implanted On Prior [facility] Admission?: Yes Date: 01/24/17 PPD to be Administered?: No - Reproductive History Patient is a Female of Child Bearing Age (11 -55 yrs old): No (MALE) - Smoking Cessation Smoking history: Current every day smoker Have you smoked in the past 12 months: Yes Aproximately how many cigarettes per day: 30 Hx Chewing Tobacco Use: No Initiated information on smoking cessation: Yes 'Breaking Loose' booklet given: 08/20/17 - Substance & Tx. History Hx Alcohol Use: No Hx Substance Use: Yes Substance Use Type: Cocaine, Heroin Hx Substance Use Treatment: Yes ([facility]) - Substances Abused Heroin Route: Injection Frequency: Daily Amount used: 3 BUNDLE Age of first use: 29 Date of Last Use: 08/20/17 Family Disease History - Family Disease History Family History: Denies Admission Physical Exam BHS - Vital Signs Vital Signs: Vital Signs - 24 hr 08/20/17 22:35 Temperature 96.1 F L Pulse Rate 68 Respiratory 20 Rate Blood Pressure 147/81 - Physical General Appearance: Yes: Moderate Distress, Tremorous, Irritable, Sweating, Anxious HEENTM: Yes: EOMI, Normal ENT Inspection, Normal Voice, DEE Respiratory: Yes: Lungs Clear, Normal Breath Sounds, No Respiratory Distress Neck: Yes: Supple Breast: Yes: Breast Exam Deferred Cardiology: Yes: Regular Rhythm, Regular Rate, S1, S2 Abdominal: Yes: Normal Bowel Sounds, Soft Genitourinary: Yes: Within Normal Limits Back: Yes: Normal Inspection Musculoskeletal: Yes: Back pain, Muscle Pain, Muscle weakness Extremities: Yes: Tremors Neurological: Yes: Alert, Normal Mood/Affect Integumentary: Yes: Warm Lymphatic: Yes: Within Normal Limits - Diagnostic (1) Cocaine dependence Current Visit: Yes Status: Chronic Qualifiers: Substance use status: uncomplicated Qualified Code(s): F14.20 - Cocaine dependence, uncomplicated (2) Nicotine dependence Current Visit: Yes Status: Chronic Qualifiers: Nicotine product type: cigarettes Substance use status: uncomplicated Qualified Code(s): F17.210 - Nicotine dependence, cigarettes, uncomplicated (3) Opioid dependence with withdrawal Current Visit: Yes Status: Chronic (4) Anxiety Current Visit: Yes Status: Chronic (5) DVT (deep venous thrombosis) Current Visit: Yes Status: Chronic Qualifiers: DVT location: lower extremity Affected thrombotic vein of extremity: unspecified vein of extremity Chronicity: unspecified Laterality: left Qualified Code(s): I82.402 - Acute embolism and thrombosis of unspecified deep veins of left lower extremity (6) Depression Current Visit: Yes Status: Chronic Qualifiers: Depression Type: unspecified Qualified Code(s): F32.9 - Major depressive disorder, single episode, unspecified (7) Endocarditis Current Visit: Yes Status: Chronic Qualifiers: Endocarditis type: unspecified Chronicity: unspecified Qualified Code(s) : I38 - Endocarditis, valve unspecified (8) HTN (hypertension) Current Visit: Yes Status: Chronic Qualifiers: Hypertension type: unspecified Qualified Code(s): I10 - Essential (primary ) hypertension Cleared for Admission S - Detox or Rehab [facility] Level of Care: Medically Managed Detox Regimen/Protocol: Methadone [facility] Breath Alcohol Content Breath Alcohol Content: 0 Urine Drug Screen - Results Drug Screen Negative: No Urine Drug Screen Results: KAVITA-Cocaine, BZO-Benzodiazepines, OXY-Oxycodone
[2017-08-20] MEDS ORDERED: LOPERAMIDE HCL 2 MG CAPSULE PO PRN (23:16)
[2017-08-20] MEDS ORDERED: MAGNESIUM HYDROX 2400MG/30ML ORAL SUSPENSION 30 ML CUP PO PRN (23:16)
[2017-08-20] MEDS ORDERED: guaiFENesin/D-METHORPHAN HB 10 ML UNIT-DOSE CUPS PO PRN (23:16)
[2017-08-20] MEDS ORDERED: NICOTINE POLACRILEX 2 MG GUM BC PRN (23:16)
[2017-08-20] MEDS ORDERED: MAGNESIUM CITRATE 300 ML BOTTLE PO PRN (23:16)
[2017-08-20] MEDS ORDERED: ACETAMINOPHEN 325 MG TABLET (FP) PO PRN (23:16)
[2017-08-20] MEDS ORDERED: MAG HYDROX/AL HYDROX/SIMETH 30 ML UNIT-DOSE CUP PO PRN (23:16)
[2017-08-20] MEDS ORDERED: P-EPHED 60MG/TRIPROLIDI 2.5MG TABLET PO PRN (23:16)
[2017-08-20] MEDS ORDERED: IBUPROFEN 400 MG TABLET (FP) PO PRN (23:16)
[2017-08-20] MEDS ORDERED: MENTHOL/PHENOL 1 EACH UD MM PRN (23:16)
[2017-08-21] MEDS: diazePAM 5 MG TABLET PO PRN ×4 (00:38→19:04)
[2017-08-21] MEDS ORDERED: diazePAM 5 MG TABLET PO PRN (00:40)
[2017-08-21] MEDS ORDERED: METHADONE HCL 10 MG TABLET (FOR DETOX USE ONLY) PO ONE ×4 (00:40→23:00)
[2017-08-21 09:52] LABS: HEMATOCRIT 37.9 % (35.4-49); HEMOGLOBIN 13.1 GM/dL (11.7-16.9); MCH 29.7 pg (25.7-33.7); MCHC 34.6 g/dl (32.0-35.9); MEAN CELL VOLUME 85.9 fl (80-96); MEAN PLT VOLUME 10.7 fl (7.5-11.1); PLATELET COUNT 141 K/MM3 (134-434); RBC 4.41 M/mm3 (4.00-5.60); RDW 13.8 % (11.9-15.9)
[2017-08-21 10:03] LABS: ALBUMIN 3.3 g/dl (3.4-5.0); ALK PHOS 68 U/L (45-117); ANION GAP 3 (8-16); BILIRUBIN,TOTAL 0.4 mg/dL (0.2-1.0); BLOOD UREA NITROGEN 19 mg/dL (7-18); CALCIUM 8.2 mg/dL (8.5-10.1); CHLORIDE 106 mmol/L (98-107); CO2 31 mmol/L (21-32); CREATININE 1.1 mg/dL (0.7-1.3); GLUCOSE,RANDOM 93 mg/dL (74-106); SGOT/AST 16 U/L (15-37); SGPT/ALT 25 U/L (12-78); SODIUM 140 mmol/L (136-145); TOT PROT 6.3 g/dl (6.4-8.2)
[2017-08-21] MEDS: PRENATAL VITAMINS W/ FOLIC ACID TABLET (FP) PO SCH (10:11)
[2017-08-21] MEDS: NICOTINE 14 MG/24 HOURS TOPICAL PATCH TD SCH (10:12)
--- NOTE | 2017-08-21 12:08 | PN ---
S COWS - Scale Resting Pulse: 0= [place] 80 or Below Sweatin=Flushed/Facial Moisture Restless Observation: 1= Difficult to Sit Still Pupil Size: 0= Normal to Room Light Bone or Joint Aches: 1= Mild Discomfort Runny Nose/ Eye Tearin= Nasal Congestion GI Upset > 30mins: 1= Stomach Cramp Tremor Observation of Outstretched Hands: 2= Slight Tremor Visible Yawning Observation: 1= 1-2x During Session Anxiety or Irritability: 2=Irritable/Anxious Goose Flesh Skin: 0=Smooth Skin COWS Score: 11 S Progress Note (SOAP) Subjective: sleepless nasal congestion abd cramp Objective: 08/21/17 12:04 Sleepy , arousable to verbal stimuli A & O x 3 Vital Signs Temperature 96.6 F L 08/21/17 09:03 Pulse Rate 64 08/21/17 09:03 Respiratory Rate 18 08/21/17 09:03 Blood Pressure 133/85 08/21/17 09:03 O2 Sat by Pulse Oximetry (%) Laboratory Last Values WBC 9.0 K/mm3 (4.0-10.0) 08/21/17 07:00 RBC 4.41 M/mm3 (4.00-5.60) 08/21/17 07:00 Hgb 13.1 GM/dL (11.7-16.9) 08/21/17 07:00 Hct 37.9 % (35.4-49) 08/21/17 07:00 MCV 85.9 fl (80-96) 08/21/17 07:00 MCH 29.7 pg (25.7-33.7) 08/21/17 07:00 MCHC 34.6 g/dl (32.0-35.9) 08/21/17 07:00 RDW 13.8 % (11.9-15.9) 08/21/17 07:00 Plt Count 141 K/MM3 (134-434) 08/21/17 07:00 MPV 10.7 fl (7.5-11.1) 08/21/17 07:00 Sodium 140 mmol/L (136-145) 08/21/17 07:00 Potassium 4.0 mmol/L (3.5-5.1) 08/21/17 07:00 Chloride 106 mmol/L (98-107) 08/21/17 07:00 Carbon Dioxide 31 mmol/L (21-32) 08/21/17 07:00 Anion Gap 3 (8-16) L 08/21/17 07:00 BUN 19 mg/dL (7-18) H 08/21/17 07:00 Creatinine 1.1 mg/dL (0.7-1.3) D 08/21/17 07:00 Creat Clearance w eGFR > 60 (>60) 08/21/17 07:00 Random Glucose 93 mg/dL (74-106) 08/21/17 07:00 Calcium 8.2 mg/dL (8.5-10.1) L 08/21/17 07:00 Total Bilirubin 0.4 mg/dL (0.2-1.0) 08/21/17 07:00 AST 16 U/L (15-37) D 08/21/17 07:00 ALT 25 U/L (12-78) D 08/21/17 07:00 Alkaline Phosphatase 68 U/L (45-117) 08/21/17 07:00 Total Protein 6.3 g/dl (6.4-8.2) L 08/21/17 07:00 Albumin 3.3 g/dl (3.4-5.0) L 08/21/17 07:00 RPR Titer Nonreactive (NONREACTIVE) 08/21/17 07:00 labs noted; all UA pending Assessment: 08/21/17 12:07 Withdrawal sx Plan: continue detox
--- NOTE | 2017-08-21 12:28 | EKG ---
Test Reason : Blood Pressure : / mmHG Vent. Rate : 063 BPM Atrial Rate : 063 BPM P-R Int : 158 ms QRS Dur : 100 ms QT Int : 416 ms P-R-T Axes : 024 065 026 degrees QTc Int : 425 ms NORMAL SINUS RHYTHM NORMAL ECG WHEN COMPARED WITH ECG OF 14-JUN-2017 00:08, NO SIGNIFICANT CHANGE WAS FOUND Confirmed by HOPE COHEN MD ([id number]) on 08/21/2017 12:28:25 PM Referred By: Warner Laguerre Confirmed By:HOPE COHEN MD
--- NOTE | 2017-08-21 12:56 | CONSULT ---
[facility] Psychiatric Consult - Data Date of interview: 08/21/17 Admission source: [facility] Identifying data: Another admission to [facility] for this 32 y/o male from [place] descent seeking detox treatment on for heroin,cocaine, xanax and nicotine dependence.Patient is single without children,domiciled, unemployed and supported by relatives. Substance Abuse History: Confirmed by patient in this interview.Details in current [facility] report : Smoking history: Current every day smoker. Have you smoked in the past 12 months: Yes. Aproximately how many cigarettes per day: 30. Hx Chewing Tobacco Use: No. Initiated information on smoking cessation: Yes. 'Breaking Loose' booklet given: 08/20/17. - Substance & Tx. History. Hx Alcohol Use: No. Hx Substance Use: Yes. Substance Use Type: Cocaine, Heroin. Hx Substance Use Treatment: Yes ([facility]). - Substances Abused. Heroin. Route : Injection. Frequency: Daily. Amount used: 3 BUNDLE. Age of first use: 29. Date of Last Use: 08/20/17 Medical History: No changes in medical profile since encounter 0f 05/2017 : history of two hip replacements (2011),endocarditis,MERSA infection and DVT ( left leg). Psychiatric History: Patient denies. Physical/Sexual Abuse/Trauma History: Patient denies. Additional Comment: Urine Drug Screen Results: KAVITA-Cocaine, BZO-Benzodiazepines , OXY-Oxycodone.Noted. Mental Status Exam - Mental Status Exam Alert and Oriented to: Time, Place, Person Cognitive Function: Good Patient Appearance: Well Groomed Mood: Hopeful, Euthymic Affect: Appropriate, Normal Range Patient Behavior: Appropriate, Cooperative Speech Pattern: Clear Voice Loudness: Normal Thought Process: Intact, Goal Oriented Thought Disorder: Not Present Hallucinations: Denies Suicidal Ideation: Denies Homicidal Ideation: Denies Insight/Judgement: Poor Sleep: Poorly, Difficulty falling asleep Appetite: Good Muscle strength/Tone: Normal Gait/Station: Normal Psychiatric Findings - Problem List ([place] 1, 2,3) (1) Opioid dependence with withdrawal Current Visit: Yes Status: Acute (2) Cocaine dependence Current Visit: Yes Status: Acute Qualifiers: Substance use status: uncomplicated Qualified Code(s): F14.20 - Cocaine dependence, uncomplicated (3) Benzodiazepine dependence Current Visit: Yes Status: Acute (4) Nicotine dependence Current Visit: Yes Status: Acute Qualifiers: Nicotine product type: cigarettes Substance use status: uncomplicated Qualified Code(s): F17.210 - Nicotine dependence, cigarettes, uncomplicated (5) Insomnia Current Visit: Yes Status: Acute - Initial Treatment Plan Initial Treatment Plan: Psychoeducation.Sleep hygiene.Detoxification in progress.Ambien 10 mg po hs prn.Patient is made aware of risk of parasomnias.Agrees with this careplan.Observation.
[2017-08-21 20:12] LABS: URINE APPEARANCE CLEAR; URINE BILIRUBIN NEGATIVE (<2.0 mg/dL); URINE BLOOD NEGATIVE (NEGATIVE); URINE COLOR LTYELLOW; URINE GLUCOSE (UA) NEGATIVE (NEGATIVE); URINE KETONE NEGATIVE (NEGATIVE); URINE LEUK ESTERASE NEGATIVE (NEGATIVE); URINE NITRITE NEGATIVE (NEGATIVE); URINE PROTEIN NEGATIVE (NEGATIVE); URINE UROBILINOGEN NEGATIVE mg/dL (0.2-1.0)
[2017-08-21] MEDS ORDERED: ZOLPIDEM TARTRATE 10 MG TABLET (PARK CARE ONLY) PO PRN (22:00)
[2017-08-21] MEDS ORDERED: THIAMINE HCL 100 MG TABLET (FP) PO SCH (22:00)
[2017-08-22] MEDS: diazePAM 5 MG TABLET PO PRN ×3 (00:28→10:13)
[2017-08-22 09:23] VITALS: BP 130/83; PULSE 68; TEMP 96.1
[2017-08-22] MEDS ORDERED: METHADONE HCL 10 MG TABLET (FOR DETOX USE ONLY) PO ONE (10:00)
[2017-08-22] MEDS ORDERED: METHADONE HCL 5 MG TABLET (FOR DETOX USE ONLY) PO ONE (10:00)
[2017-08-22] MEDS: NICOTINE 14 MG/24 HOURS TOPICAL PATCH TD SCH (10:12)
[2017-08-22] MEDS: PRENATAL VITAMINS W/ FOLIC ACID TABLET (FP) PO SCH (10:12)
--- NOTE | 2017-08-22 12:00 | PN ---
S CIWA - CIWA Score Nausea/Vomitin-No Nausea/No Vomiting Muscle Tremors: None Anxiety: 3 Agitation: 3 Paroxysmal Sweats: 3 Orientation: 0-Oriented Tacttile Disturbances: 2-Mild Itch/Numbness/Burn Auditory Disturbances: 0-None Visual Disturbances: 1-Very Mild Sensitivity Headache: 0-None Present CIWA-Ar Total Score: 12 S Progress Note (SOAP) Subjective: Sweating, Chills, Runny Nose, Body Aches. Objective: PATIENT A & O X 3, OBSERVED AMBULATING ON UNIT. NO ACUTE DISTRESS. 08/22/17 11:58 Vital Signs Temperature 96.1 F L 08/22/17 09:23 Pulse Rate 68 08/22/17 09:23 Respiratory Rate 18 08/22/17 09:23 Blood Pressure 130/83 08/22/17 09:23 O2 Sat by Pulse Oximetry (%) Laboratory Tests 08/21/17 08/21/17 08/21/17 07:00 07:00 07:00 WBC 9.0 RBC 4.41 Hgb 13.1 Hct 37.9 MCV 85.9 MCH 29.7 MCHC 34.6 RDW 13.8 Plt Count 141 MPV 10.7 Sodium 140 Potassium 4.0 Chloride 106 Carbon Dioxide 31 Anion Gap 3 L BUN 19 H Creatinine 1.1 D Creat Clearance w eGFR > 60 Random Glucose 93 Calcium 8.2 L Total Bilirubin 0.4 AST 16 D ALT 25 D Alkaline Phosphatase 68 Total Protein 6.3 L Albumin 3.3 L Urine Color Urine Appearance Urine pH Ur Specific [place] Urine Protein Urine Glucose (UA) Urine Ketones Urine Blood Urine Nitrite Urine Bilirubin Urine Urobilinogen Ur Leukocyte Esterase RPR Titer Nonreactive 08/21/17 13:55 WBC RBC Hgb Hct MCV MCH MCHC RDW Plt Count MPV Sodium Potassium Chloride Carbon Dioxide Anion Gap BUN Creatinine Creat Clearance w eGFR Random Glucose Calcium Total Bilirubin AST ALT Alkaline Phosphatase Total Protein Albumin Urine Color Ltyellow Urine Appearance Clear Urine pH 6.0 Ur Specific [place] 1.012 Urine Protein Negative Urine Glucose (UA) Negative Urine Ketones Negative Urine Blood Negative Urine Nitrite Negative Urine Bilirubin Negative Urine Urobilinogen Negative Ur Leukocyte Esterase Negative RPR Titer LABS NOTED. Assessment: 08/22/17 11:59 WITHDRAWAL SYMPTOMS. Plan: CONTINUE DETOX.
--- NOTE | 2017-08-22 12:03 | DS ---
[facility] Detox Discharge Summary Admission Date: 08/20/17 Discharge Date: 08/22/17 - History Present History: Cocaine Dependence, Opioid Dependence, Sedative Dependence Additional Comments: PATIENT HAS PERSONAL ISSUE TO ATTEND TO AND DOES NOT WISH TO STAY TO COMPLETE DETOX REGIMEN. RISKS OF LEAVING DETOX UNIT AGAINST MEDICAL ADVICE AND PRIOR TO COMPLETION OF DETOX REGIMEN EXPLAINED TO PATIENT. PATIENT ADVISED TO GO IMMEDIATELY TO NEAREST ER SHOULD ANY INTOLERABLE DETOX SYMPTOMS DEVELOP AT ANY TIME. PATIENT LEFT DETOX UNIT IN STABLE MEDICAL CONDITION Pertinent Past History: Depression, HTN, History of DVT, Nicotine Dependence, Anxiety, History of Endocarditis, Insomnia. - Physical Exam Results Vital Signs: Vital Signs Temperature 96.1 F L 08/22/17 09:23 Pulse Rate 68 08/22/17 09:23 Respiratory Rate 18 08/22/17 09:23 Blood Pressure 130/83 08/22/17 09:23 O2 Sat by Pulse Oximetry (%) Pertinent Admission Physical Exam Findings: WITHDRAWAL SYMPTOMS. Laboratory Tests 08/21/17 08/21/17 08/21/17 07:00 07:00 07:00 WBC 9.0 RBC 4.41 Hgb 13.1 Hct 37.9 MCV 85.9 MCH 29.7 MCHC 34.6 RDW 13.8 Plt Count 141 MPV 10.7 Sodium 140 Potassium 4.0 Chloride 106 Carbon Dioxide 31 Anion Gap 3 L BUN 19 H Creatinine 1.1 D Creat Clearance w eGFR > 60 Random Glucose 93 Calcium 8.2 L Total Bilirubin 0.4 AST 16 D ALT 25 D Alkaline Phosphatase 68 Total Protein 6.3 L Albumin 3.3 L Urine Color Urine Appearance Urine pH Ur Specific [place] Urine Protein Urine Glucose (UA) Urine Ketones Urine Blood Urine Nitrite Urine Bilirubin Urine Urobilinogen Ur Leukocyte Esterase RPR Titer Nonreactive 08/21/17 13:55 WBC RBC Hgb Hct MCV MCH MCHC RDW Plt Count MPV Sodium Potassium Chloride Carbon Dioxide Anion Gap BUN Creatinine Creat Clearance w eGFR Random Glucose Calcium Total Bilirubin AST ALT Alkaline Phosphatase Total Protein Albumin Urine Color Ltyellow Urine Appearance Clear Urine pH 6.0 Ur Specific [place] 1.012 Urine Protein Negative Urine Glucose (UA) Negative Urine Ketones Negative Urine Blood Negative Urine Nitrite Negative Urine Bilirubin Negative Urine Urobilinogen Negative Ur Leukocyte Esterase Negative RPR Titer LABS NOTED. - Treatment Hospital Course: Detoxed Safely - Medication Discharge Medications: Ambulatory Orders NK [No Known Home Medication] 01/23/17 - Diagnosis (1) Benzodiazepine dependence Current Visit: Yes Status: Acute (2) Cocaine dependence Current Visit: Yes Status: Acute Qualifiers: Substance use status: uncomplicated Qualified Code(s): F14.20 - Cocaine dependence, uncomplicated (3) Insomnia Current Visit: Yes Status: Acute Qualifiers: Insomnia type: unspecified Qualified Code(s): G47.00 - Insomnia, unspecified (4) Nicotine dependence Current Visit: Yes Status: Acute Qualifiers: Nicotine product type: cigarettes Substance use status: uncomplicated Qualified Code(s): F17.210 - Nicotine dependence, cigarettes, uncomplicated (5) Opioid dependence with withdrawal Current Visit: Yes Status: Acute (6) DVT (deep venous thrombosis) Current Visit: Yes Status: Chronic Qualifiers: DVT location: lower extremity Affected thrombotic vein of extremity: unspecified vein of extremity Chronicity: unspecified Laterality: left Qualified Code(s): I82.402 - Acute embolism and thrombosis of unspecified deep veins of left lower extremity (7) Endocarditis Current Visit: Yes Status: Chronic Qualifiers: Endocarditis type: unspecified Chronicity: unspecified Qualified Code(s) : I38 - Endocarditis, valve unspecified (8) HTN (hypertension) Current Visit: Yes Status: Chronic Qualifiers: Hypertension type: unspecified Qualified Code(s): I10 - Essential (primary ) hypertension - AMA Did Patient Leave Against Medical Advice: Yes (PT HAS PERSONAL ISSUE AND DOES NOT WISH TO STAY TO COMPLETE DETOX REGIMEN.)
[2017-08-23] MEDS ORDERED: METHADONE HCL 5 MG TABLET (FOR DETOX USE ONLY) PO ONE ×2 (10:00)
[2017-08-24] MEDS ORDERED: METHADONE HCL 5 MG TABLET (FOR DETOX USE ONLY) PO ONE (10:00)
[2017-08-24] MEDS ORDERED: METHADONE HCL 10 MG TABLET (FOR DETOX USE ONLY) PO ONE (10:00)
[2017-08-25] MEDS ORDERED: METHADONE HCL 5 MG TABLET (FOR DETOX USE ONLY) PO ONE (06:00)
[2017-08-25] MEDS ORDERED: METHADONE HCL 10 MG TABLET (FOR DETOX USE ONLY) PO ONE (10:00)
[2017-08-26] MEDS ORDERED: METHADONE HCL 5 MG TABLET (FOR DETOX USE ONLY) PO ONE (06:00)
== END 2017-08-22 12:30 | disposition left against medical advice (07) | DRG 770 ==
LOC: YASAS 20:02 → Y3N 20:57
PROVIDERS: ADMIT Internal Medicine; ATTEND Internal Medicine
PROC: HZ2ZZZZ Detoxification Services for Substance Abuse Treatment (ICD-10-PCS; principal; 2017-08-20)
DX: F11.23 Opioid dependence with withdrawal (principal); F13.230 Sedative, hypnotic or anxiolytic dependence with withdrawal, uncomplicated; F14.20 Cocaine dependence, uncomplicated; F17.210 Nicotine dependence, cigarettes, uncomplicated; F32.9 Major depressive disorder, single episode, unspecified; I10 Essential (primary) hypertension; G47.00 Insomnia, unspecified; Z87.718 Personal history of other specified (corrected) congenital malformations of genitourinary system; Z86.14 Personal history of Methicillin resistant Staphylococcus aureus infection; Z86.79 Personal history of other diseases of the circulatory system; Z96.643 Presence of artificial hip joint, bilateral
CPT/HCPCS: 36415; 80053; 81003; 85027; 86593; 93005; 93010